=== PATIENT | female | born 1940 | race Caucasian/White ===

== ENCOUNTER → 2019-09-14 | Outpatient (CLI) | payer OTHER ==
[~2019-09-14] VITALS: Ht 157.5 cm; Wt 46.3 kg
[~2019-09-14] MED LIST: CALCIUM + D3 E1 EACH PO; JUICE PLUS PO; LIPITOR 10 MG10 M1 PO; LOSARTAN POTAS100 MG PO; NORVASC5 M1 PO; VITAMIN D350 MC1 PO
--- NOTE | 2019-09-18 12:07 | PATH ---
[facility] [address] [place] [address] PATHOLOGY RPT PROCEDURE Name: PREETI CHATTERJEE Room #: REG [facility] Guerrero.#: [id number] Admission: 09/14/19 Date of : 38 Discharge: Report #: [id number] Path Case #: [id number] [facility] Accession Number: [id number] . 01 Material submitted: . cecum - POLYP AT CECUM . 01 Clinical history: . History of polyps . 02 Diagnosis: Polyp, cecum, endoscopic biopsy: - Tubular adenoma. - Negative for high grade dysplasia. (IUV/db; 09/17/2019) LBQ 09/17/2019 1633 Local . 02 Electronically signed: . Kourtney Sapp MD, Pathologist NPI- [id number] . 01 Gross description: . The specimen is received in formalin, labeled "Preeti Chatterjee, polyp at cecum". Received are two segments of pale peguero soft tissue ranging in size from 0.2 to 0.6 cm in maximum dimensions. The specimen is submitted entirely in cassette A1. (CAA; 09/14/2019) QAC/QAC 09/14/2019 1625 Local . 02 Pathologist provided ICD-10: D12.0 . 02 CPT . 904215 Specimen Comment: A courtesy copy of this report has been sent to [phone] Specimen Comment: [phone] Specimen Comment: Report sent to / DR GUIDO Performed at: [address], [place] [id number] MD Preston Emmanuel MD Phone: [phone] Performed at: [address] [id number] MD Kourtney Sapp MD Phone: [phone]
--- NOTE | 2019-09-19 08:17 | P ---
[facility] [place] [address] [address] PROCEDURE REPORT Name: PRAKASH ARECHIGA Room #: REG [facility] Guerrero.#: [id number] Admission: 09/14/19 Attend Phys: Robbi Warner Discharge: Date of : 38 Report #: [id number] THIS REPORT FOR: cc: Physician not on staff Physician not on staff Robbi Butler MD ~ CC: XIOMARA Butler Physician staff DATE OF SERVICE: 09/14/2019 PROCEDURE PERFORMED: Colonoscopy with biopsies. HISTORY OF PRESENT ILLNESS: The patient is an 79-year-old female with a history of colon polyps, last one in 2014 in which a tubular adenoma was removed. She presents today for routine followup. She denies any symptoms at this time. No family history of colon cancer. DESCRIPTION OF PROCEDURE: The risks and benefits of the procedure were explained to the patient, those risks including but not limited to bleeding, perforation and the risk of sedation. She understood these risks and gave informed consent. Sedation was given using propofol per anesthesia. Next, a digital rectal exam was initially performed, which was normal. Next, using a pediatric Olympus colonoscope, the scope was placed in the patient's anus and advanced under direct vision to the cecum. The overall prep was excellent. In the cecum, there was a 3 mm sessile polyp. This was removed with cold forceps, otherwise normal. The ascending and transverse colon were normal. Multiple diverticula were noted throughout the descending and sigmoid colon, no evidence of inflammation, otherwise normal. The rectal mucosa was normal. On retroflexion, small nonbleeding internal hemorrhoids were noted. The scope was then withdrawn and the procedure terminated. The patient tolerated the procedure well. IMPRESSION: 1. Small colonic polyp. 2. Left-sided diverticulosis. 3. Small internal hemorrhoids. 4. Otherwise, normal colonoscopy. RECOMMENDATIONS: 1. Await biopsy results. 2. If polyp is adenomatous, consider repeat colonoscopy in [address] [address] PROCEDURE REPORT Name: PRAKASH ARCEHIGA Room #: [facility] Tobar#: [id number] Admission: 09/14/19 Attend Phys: Robbi Warner Discharge: Date of : 38 Report #: [id number] Thank you for allowing me to participate in her care. <ELECTRONICALLY SIGNED> By: oRbbi Butler MD 09/19/19 0817 [id number] Robbi Butler MD /nt
== END | disposition home or self-care (01) ==
LOC: GI 06-22 09:56 → LAB 13:34 → GI 16:09
PROVIDERS: ATTEND Specialist
DX: Z12.11 Encounter for screening for malignant neoplasm of colon (principal); Z86.010 Personal history of colon polyps; D12.0 Benign neoplasm of cecum; K57.30 Diverticulosis of large intestine without perforation or abscess without bleeding; K64.8 Other hemorrhoids; I10 Essential (primary) hypertension; E78.00 Pure hypercholesterolemia, unspecified; Z98.890 Other specified postprocedural states; Z79.899 Other long term (current) drug therapy; Z87.891 Personal history of nicotine dependence; Z11.59 Encounter for screening for other viral diseases; Z85.3 Personal history of malignant neoplasm of breast; Z90.710 Acquired absence of both cervix and uterus; Z98.41 Cataract extraction status, right eye; Z98.42 Cataract extraction status, left eye
CPT/HCPCS: 62110; 62900